=== PATIENT | male | born 1985 | race Hispanic/Latino ===

== ENCOUNTER 2022-10-23 09:29 | Emergency (ER) | payer OTHER ==
[2022-10-23] MEDS ORDERED: Fluorescein Opthalmic Strip ONE (10:04)
[2022-10-23] MEDS ORDERED: Proparacaine 0.5% Opth 15 ML BOT ONE (10:06)
== END 2022-10-23 11:09 ==
LOC: ERS 09:29
DX: H43.12 Vitreous hemorrhage, left eye (principal); H20.012 Primary iridocyclitis, left eye; E11.9 Type 2 diabetes mellitus without complications